=== PATIENT | female | born 1955 | race Caucasian/White ===

== ENCOUNTER 2017-04-01 15:35 | Observation (INO) | payer OTHER ==
[~2017-04-01] VITALS: Ht 162.6 cm; Wt 103.9 kg
[2017-04-01 16:07] LABS: HEMOGLOBIN 14.2 gm/dl (12.3-15.3); RED BLOOD COUNT 4.77 M/UL (4.00-5.10); WHITE BLOOD COUNT 11.9 K/UL (4.5-11.0)
[2017-04-01 17:06] LABS: BUN/CREATININE RATIO 14 (0-10)
[2017-04-01] MEDS ORDERED: TENORMIN 25 MG25 MG PO (21:42)
[2017-04-01] MEDS ORDERED: LEVOTHYROXINE25 MCG PO (21:43)
[2017-04-01] MEDS ORDERED: KLONOPIN TAB 00.5 MG PO (21:43)
[2017-04-01] MEDS ORDERED: VITAMIN D32000 UNI1 PO (21:44)
[2017-04-01] MEDS ORDERED: OMEPRAZOLE40 MG PO (21:44)
[2017-04-01] MEDS ORDERED: LAMICTAL200 MG PO (21:45)
[2017-04-01] MEDS ORDERED: B COMPLEX1 EACH PO (21:45)
[2017-04-01] MEDS ORDERED: LIPITOR TAB 2020 MG PO (21:45)
[2017-04-01] MEDS ORDERED: CENTRUM SILVER1 EAC1 PO (21:45)
[2017-04-02] MEDS ORDERED: ASPIRIN CHEWABL81 MG PO (15:40)
[2017-04-02] MEDS ORDERED: PROTONIX40 MG PO (15:44)
== END 2017-04-02 16:41 | disposition home or self-care (01) ==
LOC: ER1 15:35 → ZEROF 18:46 → MED SURG 4 18:46
PROVIDERS: Emergency Medicine; ADMIT Family Medicine
DX: R07.9 Chest pain, unspecified (principal); K22.70 Barrett's esophagus without dysplasia; I10 Essential (primary) hypertension; E78.5 Hyperlipidemia, unspecified; I48.91 Unspecified atrial fibrillation; G47.33 Obstructive sleep apnea (adult) (pediatric); K21.9 Gastro-esophageal reflux disease without esophagitis; E03.9 Hypothyroidism, unspecified; E66.9 Obesity, unspecified; Z99.89 Dependence on other enabling machines and devices; Z79.899 Other long term (current) drug therapy; Z95.5 Presence of coronary angioplasty implant and graft; Z77.22 Contact with and (suspected) exposure to environmental tobacco smoke (acute) (chronic)
CPT/HCPCS: ECHO; 36415; 71010; 78452; 80053; 80061; 82550; 82553; 83036; 83874; 83880; 84439; 84443; 84484; 85025; 93005; 93017; 93306; 94660; 99285; A9502; G0378; J2785